=== PATIENT | female | born 1960 | race Caucasian/White ===

== ENCOUNTER → 2017-12-14 | Outpatient (CLI) | payer OTHER ==
[~2017-12-14] MED LIST: BENZ200C15 PO; ESZ2 PO; FEXO180T87 PO; FLU60VIA41 IM; MAGN1TAB32 PO; NAPR220C12 PO; ONDA4TAB97 PO; OXYC-865 PO; POTA-35 PO; POTA15TA PO; PROM-110 PO; TAMS0.4C25 PO; TRAZ50TA34 PO; ZOST19404 SQ; [UNRECOGNIZED DRUG - CODE] PO
--- NOTE | 2017-12-23 15:13 | RADIOLOGY IMAGING REPORT ---
FAC[place] [facility] [place]IENT NAME: ROXANA MAGUIRE : [id number] MR: [id number] V: [id number] EXAM DATE: [id number] ORDERING PHYSICIAN: PATRICIA DAHL TECHNOLOGIST: Delmy Simon PROCEDURE:BILATERAL DIGITAL SCREENING MAMMOGRAM WITH CAD ASSISTED INTERPRETATION & 3D TOMOSYNTHESIS COMPARISON:[facility]riors INDICATIONS:SCREENING FINDINGS: The breasts are heterogeneously dense. Benign appearing asymmetries are scattered bilaterally, unchanged. A small benign appearing nodularity is present in the upper outer quadrant of the Right breast, unchanged. DIAGNOSTIC CATEGORY 1--NEGATIVE. RECOMMENDATIONS: ROUTINE MAMMOGRAM AND CLINICAL EVALUATION IN 1 YR. IMPRESSION: BIRADS 1: Negative. Dictated by: Chad Ding M.D. on 12/15/2017 at 8:57 Transcribed by: THUY on 12/15/2017 at 9:28 Approved by: Tarun Castro on 12/23/2017 at 15:11 [facility]
== END ==
LOC: MAMO 00:54
PROVIDERS: ATTEND Internal Medicine
DX: Z12.31 Encounter for screening mammogram for malignant neoplasm of breast (principal)
CPT/HCPCS: 77063; 77067

== ENCOUNTER 2017-12-29 03:34 | Day surgery (SDC) | payer OTHER ==
[~2017-12-29] VITALS: Ht 160 cm; Wt 65.8 kg
[2017-12-29 06:15] VITALS: BP 114/84
[2017-12-29] MEDS ORDERED: LIDOCAINE/SOD BICARB 8.4% SYR ID ONE (06:30)
[2017-12-29] MEDS ORDERED: NORMOSOL R SOLN(*) 1000 ML BAG 1,000 ML IV PRN (06:30)
[2017-12-29] MEDS ORDERED: LIDOCAINE MPF 1% 5 ML VIAL ONE (07:26)
[2017-12-29] MEDS ORDERED: PROPOFOL EMUL(*) 10MG/ML 20 ML 40 ML ONE (07:26)
--- NOTE | 2017-12-29 07:54 | Short(Outpt) Discharge Summary ---
Discharge Summary Reason for Hosp/Final Diag: (1) Colon cancer screening Status: Chronic Hospital Course & Plan: Colonoscopy completed without problems. Normal. Next colonoscopy should be in 10 years. Departure Discharge to: Home, Self Care Discharge Instructions Home Meds Reported Medications Fexofenadine Hcl (FEXOFENADINE HCL) 180 Mg Tablet, 180 MG PO QDAY 12/17/17 Magnesium Oxide/Pyridoxine Hcl (BEELITH TABLET) 1 Each Tablet, 1 TAB PO QDAY 11/06/14 Diet: Regular Activity: As Tolerated Special Instructions: You colonoscopy was completed without any problems and your prep was excellent (Good Job!!). I didn't find any abnormalities in your colon, no cancer or polyps. I recommend that you have another colonoscopy in 10 years. Copies to: PATRICIA DAHL MD ; ANTONIETTA FLORES MD Dec 29, 2017 07:54
[2017-12-29 07:57] VITALS: BP 92/61
[2017-12-29 08:13] VITALS: BP 91/62
[2017-12-29 08:30] VITALS: BP 98/73
[2017-12-29 08:32] VITALS: BP 104/81
[2017-12-29 08:33] VITALS: BP 108/73
== END 2017-12-29 08:40 | disposition home or self-care (01) ==
LOC: OR 03:34
PROVIDERS: ATTEND Surgery
DX: Z12.11 Encounter for screening for malignant neoplasm of colon (principal)
CPT/HCPCS: 00812; 45378; J2001; J2704

== ENCOUNTER → 2018-04-06 | Outpatient (CLI) | payer OTHER ==
[~2018-04-06] MED LIST changes: +CYCL10TA29 PO; +IBUP800T37 PO; +LORA-802 PO; +MAGN100T PO; +ROPI0.2527 PO
[2018-04-06 14:48] LABS: PLATELET COUNT, AUTOMATED 171 K/uL (150-450)
--- NOTE | 2018-04-06 15:50 | RADIOLOGY IMAGING REPORT ---
FACILITY: [facility] PATIENT NAME: Lyric Cowart : 1960 MR: [id number] V: [id number] EXAM DATE: ORDERING PHYSICIAN: BLAS BROTHERS TECHNOLOGIST: Location: [facility] - [place] Patient: Lyric Cowart : 1960 Visit/Account:[id number] Date of Sevice: 04/06/2018 Exam type: CHEST PA LAT History: Painful breathing to right side of back Comparison: None. Findings: The lungs are free of acute effusions, infiltrates or edema. There is no evidence of a pneumothorax or pneumomediastinum The cardiac silhouette is normal in size. The trachea is in midline. IMPRESSION: 1. No acute cardiopulmonary process is seen Report Dictated By: Leatha Hill MD at 04/06/2018 3:19 PM Report E-Signed By: Leatha Hill MD at 04/06/2018 3:46 PM WSN:[email or web address]
== END ==
LOC: LAB 13:56
PROVIDERS: ATTEND Nurse Practitioner Primary Care
DX: R07.1 Chest pain on breathing (principal)
CPT/HCPCS: 36415; 71046; 82040; 82247; 82310; 82374; 82435; 82565; 82947; 84075; 84132; 84155; 84295; 84450; 84460; 84520; 85025; 85379